=== PATIENT | male | born 1970 | race Caucasian/White ===

== ENCOUNTER 2021-08-15 08:23 | Emergency (ER) | payer OTHER ==
[~2021-08-15] VITALS: Ht 182.9 cm; Wt 69.8 kg
[2021-08-15] MEDS ORDERED: LISINOPRIL10 MG PO (10:17)
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
== END 2021-08-15 10:35 | disposition home or self-care (01) ==
LOC: ED 08:23
DX: S44.92XA Injury of unspecified nerve at shoulder and upper arm level, left arm, initial encounter (principal); S44.91XA Injury of unspecified nerve at shoulder and upper arm level, right arm, initial encounter; I10 Essential (primary) hypertension; Z86.73 Personal history of transient ischemic attack (TIA), and cerebral infarction without residual deficits; X58.XXXA Exposure to other specified factors, initial encounter
CPT/HCPCS: 36415; 80053; 85025; 99284